=== PATIENT | male | born 1955 | race Caucasian/White ===

== ENCOUNTER 2017-07-10 05:58 | Day surgery (SDC) | payer OTHER ==
--- NOTE | 2017-07-09 15:35 | GHP ---
[f rep st] HISTORY AND PHYSICAL DATE OF ADMISSION: 07/10/2017 CHIEF COMPLAINT: Lesions on extremities. HISTORY OF PRESENT ILLNESS: Raheem is a 61-year-old with past medical history of granulomatosis with polyangiitis treated with Rituxan. He is also being treated with prednisone. He has renal insufficiency. He is referred by Dr. Alejandra Pat due to evaluation of new arm and skin lesions. They are red, painful, and draining. The lesions 1st appeared last Friday and are increasing in size. He denies fevers or chills. PAST MEDICAL HISTORY: Fabian granulomatosis and vasculitis. ALLERGIES: Sulfa. FAMILY HISTORY: Crohn disease. SOCIAL HISTORY: He does drink alcohol. He denies tobacco use. REVIEW OF SYSTEMS: 10-point review of systems negative, except per HPI. PHYSICAL EXAMINATION: GENERAL: Pleasant, well-nourished, well-groomed man in no acute distress. Pupils equal and round. No scleral icterus. HEENT: Normocephalic. No gross hearing deficits. Mucous membranes moist. RESPIRATORY : Clear to auscultation bilaterally. No increased work of breathing. CARDIAC : Regular rate. No peripheral edema. SKIN: Warm and dry. Dorsal forearm with 2 erythematous raised lesions. The distal lesion is 2-3 cm and open with drainage. The proximal lesion is approximately 1 cm. The right medial thigh has a 6 cm area that is raised with drainage and there is also a lesion on his naidu. Allevyn placed. NEURO: Grossly intact. PSYCH: Mood and affect normal. IMPRESSION AND PLAN: A 61-year-old with skin lesions. Differential diagnosis could be related to Fabian's, could be related to pyoderma gangrenosum or a vasculitis or infection. Due to the size of the lesions, these will best be addressed in the operating room. He understands there may be delayed wound healing. Case discussed with Dr. Pat. /[id number]/MODL MTDD
[2017-07-10] MEDS ORDERED: ceFAZolin 2 GM/SWFI 2 GM/20 ML SYR IVP ONE (06:21)
[2017-07-10] MEDS ORDERED: LIDOCAINE 1% 2 ML INJ ID PRN (06:22)
[2017-07-10] MEDS ORDERED: LR 1,000 ML IV ONE (06:22)
[2017-07-10] MEDS ORDERED: MIDAZOLAM 2 MG/2 ML VIAL IVP ONE (07:18)
--- NOTE | 2017-07-10 07:19 | PDANEPAE ---
ANE History of Present Illness Patient presents for wound debridement ANE Past Medical History - Cardiovascular History Hx Hypertension: Yes Hx Arrhythmias: No Hx Chest Pain: No Hx Coronary Artery / Peripheral Vascular Disease: No Hx CHF / Valvular Disease: No Hx Palpitations: No Cardiovascular History Comment: ON AMLODIPINE - Pulmonary History Hx COPD: No Hx Asthma/Reactive Airway Disease: No Hx Recent Upper Respiratory Infection: No Hx Oxygen in Use at Home: No Hx Sleep Apnea: No Sleep Apnea Screening Result - Last Documented: Negative - Neurologic History Hx Cerebrovascular Accident: No Hx Seizures: No Hx Dementia: No - Endocrine History Hx Diabetes: No - Renal History Hx Renal Disorders: Yes Renal History Comment: KIDNEY FUNCTION DIMINISHED -ON RENAL DIET. HX OF CREAT UP TO 5.0 NOW 2.6 - Liver History Hx Hepatic Disorders: No - Neurological & Psychiatric Hx Hx Neurological and Psychiatric Disorders: No - Cancer History Hx Cancer: Yes Cancer History Comment: bladder CA - Congenital Disorder History Hx Congenital Disorders: No - GI History Hx Gastrointestinal Disorders: No Gastrointestinal History Comment: ON OMEPRAZOLE DUE TO PREDNISONE - Other Health History Other Health History: 2 LESIONS R F.A. /"SEEPING LESIONS" ON L THIGH AND L CALF; . 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 L foot ORIF-tendons. TURBT 06-13-17. kidney bx 07-11-17 ANE Review of Systems Review of Systems: - Exercise capacity METS (RN): 4 METS ANE Patient History - Allergies Allergies/Adverse Reactions: Sulfa (Sulfonamide Antibiotics) Allergy (Verified 07/09/17 17:09) Hives - Home Medications Home medications: home medication list seen and reviewed Home Medications: Amlodipine Besylate 07/09/17 [Last Taken 07/10/17 03:00] DAPSONE 07/09/17 [Last Taken 07/10/17 03:00] Omeprazole 07/09/17 [Last Taken 07/10/17 03:00] Prednisone 07/09/17 [Last Taken 07/10/17 03:00] - NPO status NPO Status: no food or drink >8 hours NPO Since - Liquids (Date): 07/10/17 NPO Since - Liquids (Time): 03:00 NPO Since - Solids (Date): 04/25/18 NPO Since - Solids (Time): 18:00 - Anes Hx Anes Hx: no prior problems - Smoking Hx Smoking Status: Never smoked ANE Labs/Vital Signs - Vital Signs Blood Pressure: 165/88 Heart Rate: 66 Respiratory Rate: 18 O2 Sat (%): 93 Height: 185.42 cm Weight: 86.636 kg ANE Physical Exam - Airway Neck exam: FROM Mallampati Score: Class 1 - Pulmonary Pulmonary: no respiratory distress - Cardiovascular Cardiovascular: regular rate and rhythym - ASA Status ASA Status: III ANE Anesthesia Plan Anesthesia Plan: GA w LMA (RBA discussed)
[2017-07-10] MEDS ORDERED: LIDOCAINE 2% 5 ML SDV ONE ×2 (07:22→07:28)
[2017-07-10] MEDS ORDERED: fentaNYL 100 MCG/2 ML INJ ONE (07:22)
[2017-07-10] MEDS ORDERED: PROPOFOL/EMULSION 500 MG/50 ML BOTTLE IV ONE ×2 (07:22→08:13)
[2017-07-10] MEDS ORDERED: MIDAZOLAM 2 MG/2 ML VIAL ONE (07:23)
[2017-07-10] MEDS ORDERED: BUPIVACAINE 0.5% 30 ML SDV ONE (08:09)
[2017-07-10] MEDS ORDERED: RANITIDINE 50 MG/2 ML VIAL ONE (08:11)
[2017-07-10] MEDS ORDERED: ONDANSETRON 4 MG/2 ML VIAL ONE (08:11)
[2017-07-10] MEDS ORDERED: DEXAMETHASONE 4 MG/ML VIAL ONE (08:11)
[2017-07-10] MEDS ORDERED: oxyCODONE IR 5 MG TAB PO PRN (08:37)
[2017-07-10] MEDS ORDERED: ONDANSETRON 4 MG/2 ML VIAL IVP PRN (08:37)
[2017-07-10] MEDS ORDERED: NALOXONE HCL 0.4 MG/ML INJ IVP PRN (08:37)
[2017-07-10] MEDS ORDERED: fentaNYL 100 MCG/2 ML INJ IVP PRN (08:37)
[2017-07-10] MEDS ORDERED: LR 500 ML IV PRN (08:37)
--- NOTE | 2017-07-10 09:01 | POSTANESTH ---
Post Anesthetic Evaluation Cardiovascular Status: Similar to Pre-Op Cond Respiratory Status: Similar to Pre-op Cond. Level of Consciousness/Mental Status: Alert and Oriented Pain Control: Adequate, Prn Tx Ordered Nausea/Vomiting Control: Adequate, Prn Tx Ordered Complications Possibly Related to Anesthesia: None Noted
--- NOTE | 2017-07-10 09:04 | POSTOPPROG ---
Post Op Note Date of Operation: 07/10/17 Surgeon: Beata Nina Anesthesiologist: josie Anesthesia: GET(General Endotracheal) Pre-op Diagnosis: forearm lesions abscess on legs Post-op Diagnosis: same Indication: 61 yo with wegners and forearm lesions and leg abscess Procedure: excision forearm lesion x 2 and i&D leg lesions Findings: puruen material Inf/Abcess present in the surg proc area at time of surgery?: Yes Depth: Superfical (Skin SQ) EBL: Minimal
[2017-07-10 10:13] VITALS: BP 165/81
--- NOTE | 2017-07-14 17:22 | GOP ---
[f rep st] OPERATIVE REPORT DATE OF OPERATION: 07/10/2017 SURGEON: Beata Nina MD ANESTHESIA: General. ANESTHESIOLOGIST: Javi Eid MD PREOPERATIVE DIAGNOSIS: Forearm solid lesions and abscess on leg. POSTOPERATIVE DIAGNOSIS: Forearm solid lesions and abscess on leg. PROCEDURE PERFORMED: Excision of forearm lesions x2. Incision and drainage of leg lesions. FINDINGS: Purulent material. ESTIMATED BLOOD LOSS: Minimal. 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 He developed lesions on his forearms as well as painful lesions on his leg. DESCRIPTION OF PROCEDURE: Patient was brought into the operating room, placed supine on the table an d general anesthesia was administered. His right arm and leg were prepped and draped in the usual st erile fashion. I infiltrated all sites with 0.5% Marcaine prior to making incisions. I made an inci darby on the proximal forearm lesion, which measured 2 x 1.5; I dissected down beyond the level of the nodular area. I submitted this for Pathology. I then excised the distal forearm lesion which measu red 5.2 x 2.5. Hemostasis was achieved in both of these wounds. I closed both of the wounds with ny tia and sterile dressings applied. Next, attention was drawn to the leg. I performed incision and drainage on the right lower leg and r ight upper leg. Cultures obtained. The wounds were irrigated. Each wound was packed with Hydrofera Blue and sterile dressings applied. He was awakened in the operating room, extubated, transferred to PACU in stable condition. /[id number]/MODL
== END 2017-07-10 10:10 | disposition home or self-care (01) ==
LOC: FSGY 05:58
PROVIDERS: ATTEND Surgery
PROC: 0HBDXZZ Excision of Right Lower Arm Skin, External Approach (ICD-10-PCS; principal; 2017-07-10 07:30)
PROC: 0H9LXZZ Drainage of Left Lower Leg Skin, External Approach (ICD-10-PCS; principal; 2017-07-10 07:30)
DX: L08.9 Local infection of the skin and subcutaneous tissue, unspecified (principal); M31.30 Wegener's granulomatosis without renal involvement; Z79.52 Long term (current) use of systemic steroids; F10.20 Alcohol dependence, uncomplicated
CPT/HCPCS: J0690; J1100; J2250; J2405; J2704; J2780; J3010